=== PATIENT | male | born 1960 | race African-American/Black ===

== ENCOUNTER 2024-06-11 19:48 | Inpatient (IN) | payer BC ==
[~2024-06-11] VITALS: Ht 182.9 cm; Wt 90.7 kg
[2024-06-11 20:00] VITALS: O2SAT 100
[2024-06-11 21:13] LABS: BASOPHILS % 0.4 % (0.0-2.0); EOSINOPHILS % 0.7 % (0.0-5.0); HEMATOCRIT. 39.2 % (42.0-52.0); HEMOGLOBIN. 12.9 g/dL (14.0-18.0); LYMPHOCYTES % 13.5 % (20.0-50.0); MEAN CORPUSCULAR HGB CONC 32.9 g/dL (31.0-37.0); MEAN CORPUSCULAR VOLUME 91.1 fL (80.0-94.0); MEAN PLATELET VOLUME 9.4 fl (7.4-10.4); MONOCYTES % 3.9 % (2.0-8.0); NEUTROPHILS % 81.5 % (40.0-76.0); PLATELET 200 x1000/uL (130-400); RED CELL DISTRIBUTION WIDTH 14.6 % (11.6-14.6); WHITE BLOOD COUNT 5.8 x1000/uL (4.5-11.0)
[2024-06-11 21:15] LABS: CHLORIDE 105 mEq/L (98-107); POTASSIUM 4.2 mEq/L (3.5-5.1); SODIUM 136 mEq/L (136-145)
[2024-06-11 21:16] LABS: CARBON DIOXIDE 24 mEq/L (21-32)
[2024-06-11 21:17] LABS: CALCIUM 9.8 mg/dL (8.7-10.4)
[2024-06-11 21:18] LABS: INR 1.1; PROTHROMBIN TIME 11.4 sec (9.6-11.0)
[2024-06-11 21:21] LABS: CREATININE 0.8 mg/dL (0.6-1.3); GLUCOSE 118 mg/dL (70-105); UREA NITROGEN BLOOD 10 mg/dL (9-23)
[2024-06-11 21:22] LABS: ETHANOL BLOOD < 10 mg/dL (<10); TROPONIN I HIGH SENSITIVITY 8 ng/L (3.0-53)
[2024-06-11] MEDS: ASPIRIN 81MG TABLET PO ONE (22:15)
[2024-06-11] MEDS: CLOPIDOGREL 75MG TABLET PO ONE (22:15)
[2024-06-11] MEDS ORDERED: IOHEXOL-350 100 ML BOTTLE ONE (22:37)
[2024-06-12] VITALS: BP 170/98; PULSE 78; RESP 18; TEMP 36.2
[2024-06-12] MEDS ORDERED: PANT20TA17 MT (02:18)
[2024-06-12] MEDS ORDERED: LEVO150T8 MT (02:18)
[2024-06-12] MEDS ORDERED: ATOR10TA69 MT (02:18)
[2024-06-12] MEDS ORDERED: LOSA25TA26 MT (02:18)
[2024-06-12 03:09] LABS: CLARITY URINE CLEAR (CLEAR); COLOR URINE YELLOW (YELLOW); GLUCOSE URINE NEGATIVE (NEGATIVE); KETONES URINE NEGATIVE (NEGATIVE); LEUKOCYTE ESTERASE URINE NEGATIVE (NEGATIVE); NITRITE URINE NEGATIVE (NEGATIVE); OCCULT BLOOD URINE NEGATIVE (NEGATIVE); PH URINE 7.5 (4.5-8.0); PROTEIN URINE NEGATIVE (NEGATIVE); SPECIFIC GRAVITY URINE 1.044 (1.005-1.030); UROBILINOGEN URINE 0.2 E.U./dL (0.2-1.0)
[2024-06-12] MEDS ORDERED: ACETAMINOPHEN 650MG/20.3ML UDC PO PRN (03:15)
[2024-06-12 03:18] LABS: *AMPHETAMINES SCREEN URINE NEGATIVE (NEGATIVE); *BARBITURATES SCREEN URINE NEGATIVE (NEGATIVE); *BENZODIAZEPINES SCREEN URINE NEGATIVE (NEGATIVE); *COCAINE SCREEN URINE NEGATIVE (NEGATIVE)
[2024-06-12 03:19] LABS: CANNABINOID URINE SCREEN NEGATIVE (NEGATIVE); ECSTASY MDMA SCREEN URINE NEGATIVE (NEGATIVE); METHADONE URINE SCREEN NEGATIVE (NEGATIVE); OPIATES URINE SCREEN NEGATIVE (NEGATIVE); PHENCYCLIDINE URINE SCREEN NEGATIVE (NEGATIVE)
[2024-06-12 08:00] VITALS: BP 180/101; PULSE 75; RESP 18; TEMP 36.8; O2SAT 98
[2024-06-12] MEDS ORDERED: MEDICATION NOT ON FORMULARY EA (Pantoprazole Sodium 1 TAB) MT SCH (09:00)
[2024-06-12] MEDS: LOSARTAN 25 MG TABLET PO SCH (09:14)
[2024-06-12] MEDS: ATORVASTATIN CALCIUM 10MG TABLET PO SCH (09:14)
[2024-06-12] MEDS: LEVOTHYROXINE SODIUM 150MCG TABLET PO SCH (09:14)
[2024-06-12] MEDS: PANTOPRAZOLE 40MG DR TABLET PO SCH (09:14)
[2024-06-12 12:00] VITALS: BP 163/99; PULSE 69; RESP 18; TEMP 36.8; O2SAT 98
[2024-06-12] MEDS ORDERED: ACETAMINOPHEN 325MG TABLET PO PRN (12:00)
[2024-06-12] MEDS ORDERED: DOCUSATE SODIUM 100MG CAPSULE PO PRN (12:00)
[2024-06-12] MEDS ORDERED: ONDANSETRON HCL 4MG/2ML INJ IV PRN (12:00)
[2024-06-12] MEDS ORDERED: IPRATROPIUM/ALBUTEROL 0.5-3(2.5)MG/3ML NEB HHN PRN (12:00)
[2024-06-12] MEDS: ASPIRIN 81MG TABLET PO SCH (12:45)
[2024-06-12] MEDS: CLOPIDOGREL 75MG TABLET PO SCH (12:46)
[2024-06-12] MEDS: ENOXAPARIN 40MG/0.4ML SYR SUBCUT SCH (12:46)
[2024-06-12 16:00] VITALS: BP 169/89; PULSE 66; RESP 18; TEMP 36.8; O2SAT 99
[2024-06-12 16:49] LABS: BASOPHILS % 0.3 % (0.0-2.0); EOSINOPHILS % 2.3 % (0.0-5.0); HEMATOCRIT. 40.9 % (42.0-52.0); HEMOGLOBIN. 13.5 g/dL (14.0-18.0); LYMPHOCYTES % 21.7 % (20.0-50.0); MEAN CORPUSCULAR HEMOGLOBIN 30.3 pg (28.0-32.0); MEAN CORPUSCULAR VOLUME 91.7 fL (80.0-94.0); MEAN PLATELET VOLUME 9.6 fl (7.4-10.4); MONOCYTES % 6.9 % (2.0-8.0); NEUTROPHILS % 68.8 % (40.0-76.0); PLATELET 198 x1000/uL (130-400); RED BLOOD CELL COUNT 4.46 mill/uL (4.7-6.1); RED CELL DISTRIBUTION WIDTH 14.7 % (11.6-14.6); WHITE BLOOD COUNT 7.6 x1000/uL (4.5-11.0)
[2024-06-12 17:03] LABS: CHLORIDE 108 mEq/L (98-107); POTASSIUM 3.9 mEq/L (3.5-5.1); SODIUM 139 mEq/L (136-145)
[2024-06-12 17:04] LABS: CALCIUM 9.9 mg/dL (8.7-10.4); CARBON DIOXIDE 23 mEq/L (21-32)
[2024-06-12 17:08] LABS: CREATINE KINASE MB FRACTION 3.1 ng/mL (0.5-3.6)
[2024-06-12 17:09] LABS: CREATININE 0.7 mg/dL (0.6-1.3); GLUCOSE 101 mg/dL (70-105); TRIGLYCERIDE 102 mg/dL (0-150); TROPONIN I HIGH SENSITIVITY 15 ng/L (3.0-53); UREA NITROGEN BLOOD 9 mg/dL (9-23)
[2024-06-12 17:10] LABS: ALANINE AMINOTRANSFERASE 120 IU/L (10-49); LDL CHOLESTEROL 82 mg/dL (5-100)
[2024-06-12 17:11] LABS: ALBUMIN 4.4 g/dL (3.2-4.8); ASPARTATE AMINOTRANSFERASE 85 IU/L (<34); BILIRUBIN DIRECT 0.2 mg/dL (<=3.0); BILIRUBIN TOTAL 0.7 mg/dL (0.1-1.0); CHOLESTEROL 130 mg/dL (<200); CREATINE KINASE 728 IU/L (46-171); HDL CHOLESTEROL 36 mg/dL (>55); PHOSPHORUS 3.2 mg/dL (2.5-4.9); PROTEIN TOTAL 7.4 g/dL (6.0-8.3)
[2024-06-12 17:12] LABS: T4 FREE 1.36 ng/dL (0.89-1.76)
[2024-06-12 17:13] LABS: THYROID STIMULATING HORMONE 0.25 uIU/mL (0.55-4.78)
[2024-06-12 17:21] LABS: D-DIMER 1.28 mg/L FEU (<0.50); INR 1.1; PROTHROMBIN TIME 11.4 sec (9.6-11.0)
[2024-06-12 20:00] VITALS: BP 168/108; PULSE 72; RESP 20; TEMP 36.8; O2SAT 96
[2024-06-12] MEDS: SODIUM CHLORIDE 0.45% 1,000 ML IV SCH (21:29)
[2024-06-12] MEDS: HYDRALAZINE 20MG/ML VIAL IV PRN (21:30)
[2024-06-13] VITALS: BP 161/86; PULSE 72; RESP 20; TEMP 37; O2SAT 97
[2024-06-13 03:56] VITALS: BP 168/106; PULSE 80; RESP 20; TEMP 36.3; O2SAT 97
[2024-06-13 06:17] LABS: BASOPHILS % 0.4 % (0.0-2.0); CHLORIDE 105 mEq/L (98-107); EOSINOPHILS % 3.3 % (0.0-5.0); HEMATOCRIT. 39.7 % (42.0-52.0); HEMOGLOBIN. 13.2 g/dL (14.0-18.0); LYMPHOCYTES % 22.4 % (20.0-50.0); MEAN CORPUSCULAR HEMOGLOBIN 30.5 pg (28.0-32.0); MEAN CORPUSCULAR HGB CONC 33.2 g/dL (31.0-37.0); MEAN CORPUSCULAR VOLUME 91.8 fL (80.0-94.0); MEAN PLATELET VOLUME 9.6 fl (7.4-10.4); MONOCYTES % 6.5 % (2.0-8.0); NEUTROPHILS % 67.4 % (40.0-76.0); PLATELET 204 x1000/uL (130-400); POTASSIUM 3.9 mEq/L (3.5-5.1); RED BLOOD CELL COUNT 4.32 mill/uL (4.7-6.1); RED CELL DISTRIBUTION WIDTH 14.4 % (11.6-14.6); SODIUM 138 mEq/L (136-145); WHITE BLOOD COUNT 7.9 x1000/uL (4.5-11.0)
[2024-06-13 06:18] LABS: CALCIUM 9.7 mg/dL (8.7-10.4); CARBON DIOXIDE 24 mEq/L (21-32)
[2024-06-13 06:23] LABS: CREATININE 0.7 mg/dL (0.6-1.3); GLUCOSE 104 mg/dL (70-105); UREA NITROGEN BLOOD 10 mg/dL (9-23)
[2024-06-13 06:25] LABS: CREATINE KINASE 589 IU/L (46-171)
[2024-06-13] MEDS: LEVOTHYROXINE SODIUM 150MCG TABLET PO SCH (07:53)
[2024-06-13 08:00] VITALS: BP 147/97; PULSE 71; RESP 18; TEMP 36.3; O2SAT 96
[2024-06-13] MEDS: FAMOTIDINE 20MG/2ML VIAL IV SCH (08:29)
[2024-06-13] MEDS: ATORVASTATIN CALCIUM 40MG TABLET PO SCH (08:29)
[2024-06-13] MEDS: ACETAMINOPHEN 325MG TABLET PO PRN (10:47)
[2024-06-13 12:00] VITALS: BP 106/79; PULSE 71; RESP 16; TEMP 36.2; O2SAT 97
[2024-06-13 16:00] VITALS: BP 139/87; PULSE 70; RESP 16; TEMP 36.9; O2SAT 96
[2024-06-13] MEDS ORDERED: IOHEXOL-350 100 ML BOTTLE ONE (22:57)
[2024-06-14] VITALS: BP 167/91; PULSE 67; RESP 16; TEMP 36.1; O2SAT 99
[2024-06-14] MEDS: CLONIDINE 0.1MG TABLET PO PRN (00:04)
[2024-06-14 04:00] VITALS: BP 140/83; PULSE 59; RESP 16; TEMP 36.5; O2SAT 98
[2024-06-14 08:00] VITALS: BP 146/86; PULSE 58; RESP 17; TEMP 36.5; O2SAT 99
[2024-06-14] MEDS ORDERED: TETRACAINE/BENZOCAINE/BUTAMBEN 20 GM SPRAY MM ONE (11:43)
[2024-06-14] MEDS ORDERED: LIDOCAINE 2% 6ML GLYDO MM ONE (11:43)
[2024-06-14] MEDS ORDERED: FENTANYL CITRATE/PF 50MCG/ML 2ML VIAL ONE (12:15)
[2024-06-14] MEDS ORDERED: MIDAZOLAM HCL 2 MG/2 ML VIAL ONE (12:15)
[2024-06-14 14:05] VITALS: BP 127/81; PULSE 58; RESP 16; TEMP 36.6; O2SAT 98
[2024-06-14 16:00] VITALS: BP 156/86; PULSE 63; RESP 16; TEMP 36.2; O2SAT 98
[2024-06-14 20:00] VITALS: BP 126/82; PULSE 65; RESP 18; TEMP 36.8; O2SAT 95
[2024-06-15] VITALS (8 sets, daily range): BP systolic 105–160; BP diastolic 75–100; PULSE 62–87; RESP 18–20; TEMP 36.2–37.6; O2SAT 96–99
[2024-06-15 21:14] LABS: CREATINE KINASE 235 IU/L (46-171)
[2024-06-15] MEDS: GABAPENTIN 100MG CAPSULE PO SCH (21:15)
[2024-06-15] MEDS ORDERED: GABAPENTIN 100MG CAPSULE PO SCH (22:00)
[2024-06-16] VITALS (7 sets, daily range): BP systolic 114–169; BP diastolic 69–96; PULSE 64–81; RESP 18–20; TEMP 36.2–36.8; O2SAT 98–100
[2024-06-16] MEDS: ATORVASTATIN CALCIUM 40MG TABLET PO SCH (21:40)
[2024-06-17] VITALS: BP 145/82; PULSE 60; RESP 19; TEMP 36.4; O2SAT 99
[2024-06-17 04:00] VITALS: BP 129/80; PULSE 56; RESP 18; TEMP 37; O2SAT 99
[2024-06-17 08:00] VITALS: BP 131/85; PULSE 65; RESP 18; TEMP 36.2; O2SAT 98
[2024-06-17 16:00] VITALS: BP 139/88; PULSE 75; RESP 18; TEMP 36.4; O2SAT 97
[2024-06-17 20:00] VITALS: BP 133/94; PULSE 70; RESP 20; TEMP 36.9
[2024-06-17] MEDS: ATORVASTATIN CALCIUM 40MG TABLET PO SCH (23:18)
[2024-06-17] MEDS: GABAPENTIN 100MG CAPSULE PO SCH (23:19)
[2024-06-18] VITALS: BP 128/88; PULSE 77; RESP 18; TEMP 36.6; O2SAT 99
[2024-06-18 04:00] VITALS: BP 145/82; PULSE 74; RESP 18; TEMP 36.8; O2SAT 98
[2024-06-18 08:00] VITALS: BP 145/100; PULSE 66; RESP 18; TEMP 36.6; O2SAT 98
[2024-06-18 12:00] VITALS: BP 129/85; PULSE 64; RESP 18; TEMP 36.4; O2SAT 98
[2024-06-18 16:00] VITALS: BP 118/76; PULSE 95; RESP 18; TEMP 36.7; O2SAT 98
[2024-06-18 20:00] VITALS: BP 134/91; PULSE 66; RESP 20; TEMP 36.6; O2SAT 99
[2024-06-19] VITALS: BP 147/88; PULSE 55; RESP 18; RESP 20; TEMP 36.7; TEMP 36.8; O2SAT 100
[2024-06-19 04:00] VITALS: BP 122/77; PULSE 59; RESP 18; TEMP 36.6; O2SAT 98
[2024-06-19 10:11] LABS: CREATINE KINASE 180 IU/L (46-171)
[2024-06-19 12:00] VITALS: BP 119/80; PULSE 58; RESP 18; TEMP 36.3; O2SAT 100
[2024-06-19 16:19] VITALS: BP 119/77; PULSE 59; RESP 17; TEMP 36.2; O2SAT 97
[2024-06-19 20:00] VITALS: BP 141/92; PULSE 71; RESP 20; TEMP 36.8; O2SAT 97
[2024-06-20] VITALS: BP 129/82; PULSE 68; RESP 18; TEMP 36.5; O2SAT 97
[2024-06-20 04:00] VITALS: BP 151/74; PULSE 62; RESP 18; TEMP 36.3; O2SAT 97
[2024-06-20 04:11] LABS: ANTI-THROMBIN ACTIVITY 110 % (75-135); PROTEIN C FUNCTIONAL 111 % (73-180)
[2024-06-20 08:55] VITALS: BP 127/93; PULSE 69; RESP 18; TEMP 36.7; O2SAT 100
[2024-06-20 12:49] VITALS: BP 113/79; PULSE 70; RESP 18; TEMP 36.7; O2SAT 97
[2024-06-20 16:00] VITALS: BP 123/78; PULSE 79; RESP 18; TEMP 36.6; O2SAT 98
== END 2024-06-20 19:45 | DRG 65 ==
LOC: ER 19:48 → EDBEDREQ 20:12 → 7WST 22:52 → EDBEDREQ 22:58
PROVIDERS: ADMIT Internal Medicine; ATTEND Internal Medicine
DX: I63.531 Cerebral infarction due to unspecified occlusion or stenosis of right posterior cerebral artery (principal); G81.94 Hemiplegia, unspecified affecting left nondominant side; E05.90 Thyrotoxicosis, unspecified without thyrotoxic crisis or storm; E03.9 Hypothyroidism, unspecified; I10 Essential (primary) hypertension; I65.23 Occlusion and stenosis of bilateral carotid arteries; K76.0 Fatty (change of) liver, not elsewhere classified; Z20.822 Contact with and (suspected) exposure to COVID-19; E78.00 Pure hypercholesterolemia, unspecified; K21.9 Gastro-esophageal reflux disease without esophagitis; I25.10 Atherosclerotic heart disease of native coronary artery without angina pectoris; H53.462 Homonymous bilateral field defects, left side; H54.62 Unqualified visual loss, left eye, normal vision right eye; K44.9 Diaphragmatic hernia without obstruction or gangrene; Z88.0 Allergy status to penicillin; Z92.21 Personal history of antineoplastic chemotherapy; Z97.0 Presence of artificial eye; Z92.3 Personal history of irradiation
CPT/HCPCS: 36415; 70486; 70496; 70498; 70551; 71045; 71275; 80048; 80061; 80076; 80305; 80320; 81003; 81403; 81407; 81479; 82550; 82553; 82962; 83036; 83735; 83880; 84100; 84439; 84443; 84480; 84484; 85025; 85300; 85303; 85306; 85379; 85651; 87426; 92610; 93005; 93306; 93312; 93970; 97112; 97116; 97162; 97166; 97530; 97535; 99291; A4606; J0360; J1650; J2250; J3010; J3490; Q9967; G0480